=== PATIENT | female | born 1950 | race Two or more races ===

== ENCOUNTER → 2018-06-09 | Outpatient (CLI) | payer OTHER | END | disposition home or self-care (01) | LOC: RAD 12:03 | DX: M12.88 Other specific arthropathies, not elsewhere classified, other specified site (principal); M47.899 Other spondylosis, site unspecified ==

== ENCOUNTER 2018-07-08 11:26 | Outpatient (CLI) | payer OTHER | END 2018-07-08 11:37 | disposition home or self-care (01) | LOC: RAD 11:26 | DX: M19.90 Unspecified osteoarthritis, unspecified site (principal) ==

== ENCOUNTER 2018-07-26 13:09 | Outpatient (CLI) | payer OTHER | END 2018-07-26 13:16 | disposition home or self-care (01) | LOC: MRI 13:09 | DX: M25.561 Pain in right knee (principal) | CPT/HCPCS: 73721 ==

== ENCOUNTER 2018-09-29 11:09 | Outpatient (CLI) | payer OTHER | END 2018-09-29 13:12 | disposition home or self-care (01) | LOC: EKG 11:09 | DX: R07.89 Other chest pain (principal); I10 Essential (primary) hypertension; Z01.818 Encounter for other preprocedural examination ==

== ENCOUNTER 2019-01-14 12:25 | Outpatient (CLI) | payer OTHER | END 2019-01-14 12:40 | disposition home or self-care (01) | LOC: RAD 12:25 | DX: M25.562 Pain in left knee (principal); M25.561 Pain in right knee ==

== ENCOUNTER 2019-06-20 12:02 | Outpatient (CLI) | payer OTHER | END 2019-06-20 12:06 | disposition home or self-care (01) | LOC: EKG 12:02 | DX: I10 Essential (primary) hypertension (principal) ==

== ENCOUNTER 2020-11-15 14:29 | Emergency (ER) | payer OTHER ==
[~2020-11-15] VITALS: Ht 162.6 cm; Wt 77.1 kg
[2020-11-15] MEDS ORDERED: ZESTRIL10 M1 PO (14:45)
[2020-11-15] MEDS ORDERED: PRAVASTATIN SOD20 MG PO (14:46)
== END 2020-11-15 22:09 | disposition home or self-care (01) ==
LOC: ER 14:29
DX: R10.31 Right lower quadrant pain (principal)

== ENCOUNTER → 2020-12-25 | Outpatient (CLI) | payer OTHER ==
[~2020-12-25] MED LIST: PRAVASTATIN SOD20 MG PO; ZESTRIL10 M1 PO
== END | disposition home or self-care (01) ==
LOC: RAD 10:47
PROVIDERS: ATTEND Physical Medicine & Rehabilitation
DX: M17.12 Unilateral primary osteoarthritis, left knee (principal); M54.5 Low back pain; M43.16 Spondylolisthesis, lumbar region